=== PATIENT | female | born 1960 | race Hispanic/Latino ===

== ENCOUNTER 2024-10-11 18:50 | Emergency (ER) | payer OTHER ==
[~2024-10-11] VITALS: Ht 160 cm; Wt 64.4 kg
[2024-10-11] MEDS ORDERED: IBUP-2070 PO (19:26)
[2024-10-11] MEDS ORDERED: NEOM30OI18 TP (19:26)
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
[2024-10-11 19:29] VITALS: BP 160/90; PULSE 65; RESP 16; TEMP 98.3; O2SAT 98
[2024-10-11] MEDS: NEOMY SULF/BACITRA/POLYMYXIN B 1 EACH PACKET TP ONE (19:34)
[2024-10-11] MEDS: acetaMINOPHEN WITH coDEINE 1 TAB TAB PO ONE (19:34)
== END 2024-10-11 19:48 | disposition home or self-care (01) ==
LOC: EDH 18:50
DX: T23.461A Corrosion of unspecified degree of back of right hand, initial encounter (principal); T23.421A Corrosion of unspecified degree of single right finger (nail) except thumb, initial encounter; E78.00 Pure hypercholesterolemia, unspecified; I10 Essential (primary) hypertension; F41.9 Anxiety disorder, unspecified; Y93.89 Activity, other specified; Y92.89 Other specified places as the place of occurrence of the external cause; Y99.8 Other external cause status
CPT/HCPCS: 99283